=== PATIENT | male | born 1940 | race African-American/Black ===

== ENCOUNTER 2017-12-31 17:00 | Emergency (ER) | payer SELFPAY ==
[~2017-12-31] VITALS: Ht 172.7 cm; Wt 75.0 kg
[2017-12-31] MEDS ORDERED: HYDROCODONE/ACETAMINOPHEN 5/325MG TABLET PO ONE (18:45)
[2017-12-31] MEDS ORDERED: IBUPROFEN 800MG TABLET PO ONE (18:45)
[2017-12-31 21:07] VITALS: BP 172/85
== END 2017-12-31 21:09 | disposition home or self-care (01) ==
LOC: ER 17:00
DX: S93.491A Sprain of other ligament of right ankle, initial encounter (principal); I11.0 Hypertensive heart disease with heart failure; I50.30 Unspecified diastolic (congestive) heart failure; E11.9 Type 2 diabetes mellitus without complications; I10 Essential (primary) hypertension; Z95.1 Presence of aortocoronary bypass graft; Z88.0 Allergy status to penicillin; F17.200 Nicotine dependence, unspecified, uncomplicated; W01.0XXA Fall on same level from slipping, tripping and stumbling without subsequent striking against object, initial encounter; Y93.89 Activity, other specified; Y92.018 Other place in single-family (private) house as the place of occurrence of the external cause
CPT/HCPCS: 29515; 73610; 99284